=== PATIENT | female | born 1985 | race Caucasian/White ===

== ENCOUNTER 2020-02-22 12:05 | Inpatient (IN) | payer MEDICAID, SELFPAY ==
[2020-02-22 12:05] VITALS: BMI 62.6
[2020-02-22 14:57] VITALS: BP 148/79; PULSE 93; RESP 20; TEMP 36.6; O2SAT 96
[2020-02-22 15:47] VITALS: RESP 18
[2020-02-22] MEDS: oxyCODONE-APAP 10-325 mg Tablet 1 TAB PO ×2 (15:47→23:55)
[2020-02-22] MEDS: gabapentin 400 mg Capsule 800 MG PO ×2 (15:48→20:47)
[2020-02-22] MEDS: prazosin 1 mg Capsule 2 MG PO (17:06)
[2020-02-22 20:17] VITALS: PULSE 95; RESP 20; O2SAT 98
--- NOTE | 2020-02-22 20:43 | PC.NURSE ---
Patient is sad, tearful, cooperative. She denies SI at this time. She talked about her feelings of loss. Seems to be ready to accept help. Cooperative with staff. Pt reports UTI and flank pain. Med nurse notified.
[2020-02-22] MEDS: acetaminophen 325 mg Tablet 650 MG PO (20:47)
[2020-02-22] MEDS: quetiapine 100 mg Tablet PO (20:47)
[2020-02-22 20:52] VITALS: BP 131/85; PULSE 85; RESP 18; TEMP 36.6; O2SAT 95
--- NOTE | 2020-02-22 22:26 | PC.NURSE ---
pt reports feeling strange. she says her heart is racing. her pulse rate while sitting was 85 at 1800 and 120 at 2210 manually. REYNALDO farrell took another set of vital signs they are slightly elevated. will continue to monitor patient.
[2020-02-22 22:44] VITALS: BP 133/73; PULSE 93; O2SAT 96
[2020-02-22 23:55] VITALS: RESP 17; O2SAT 96
[2020-02-23] VITALS (8 sets, daily range): BP systolic 113–130; BP diastolic 70–76; PULSE 66–92; RESP 15–20; TEMP 36.6–36.7; O2SAT 93–98
[2020-02-23] MEDS: montelukast sodium 10 mg Tablet PO (07:47)
[2020-02-23] MEDS: gabapentin 400 mg Capsule 800 MG PO ×3 (07:47→21:53)
[2020-02-23] MEDS: metformin 500 mg Tablet PO (07:47)
[2020-02-23] MEDS: oxyCODONE-APAP 10-325 mg Tablet 1 TAB PO ×3 (07:48→21:54)
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
[2020-02-23 14:19] LABS: Add Urine Microscopic? NO
[2020-02-23 14:54] LABS: Bilirubin Urine Neg (Negative); Blood Urine Neg (Negative); Glucose Urine UA 4+ (Normal); Ketones Urine Negative (Negative); Leukocyte Esterase Urine Negative (Negative); Nitrate Urine Negative (Negative); Protein Urine Neg (Negative); Specific Gravity, Urine 1.025 (1.005-1.030); Urine Appearance Clear (CLEAR); Urine Color Yellow (Yellow); Urobilinogen Urine 1 mg/dL (Negative); pH Urine 5 (5-7)
[2020-02-23] MEDS: prazosin 1 mg Capsule 2 MG PO (17:17)
[2020-02-23] MEDS: quetiapine 100 mg Tablet PO (21:53)
[2020-02-24] VITALS (8 sets, daily range): BP systolic 121–137; BP diastolic 62–80; PULSE 75–87; RESP 17–22; TEMP 36.4–36.7; O2SAT 92–98
[2020-02-24] MEDS: oxyCODONE-APAP 10-325 mg Tablet 1 TAB PO ×3 (06:28→22:32)
[2020-02-24] MEDS: metformin 500 mg Tablet PO (08:09)
[2020-02-24] MEDS: montelukast sodium 10 mg Tablet PO (08:09)
[2020-02-24] MEDS: sertraline 50 mg Tablet PO (08:09)
[2020-02-24] MEDS: gabapentin 400 mg Capsule 800 MG PO ×3 (08:10→20:36)
--- NOTE | 2020-02-24 11:04 | P.PN_ITS ---
Subjective NPU Subjective: Interval history: Beena presents today reporting that she is feeling a little better with the initiation of the medication. Reports however that in the [place] and often she does feel she is capable of tolerating her previous doses. We also discussed the risks, benefits and alternatives of increasing her portions on the sides with the meals. She reports that she understands that she has nutritional issues but the volume of that we get this so dramatically low, that she is hungry all the time. She reported eating fine but struggling with sleep. Mental Status Exam MSE Comments: This is a morbidly obese white female with hospital gown on with no abnormal movements except for mild psychomotor retardation cooperative with exam. In no acute distress. Speech was normal rate and volume. Mood described as okay, affect congruent. Thought process organized. Thought content: Patient denied any suicidal or homicidal ideations, there were no delusions reported or noted, she denied any auditory or visual hallucinations. Attention and concentration were intact and memory appeared reliable but none were formally tested. She is alert and oriented x3. Insight and judgment were fair. Vitals/I&O/Wt Last Vital Signs Temp 97.8 F 02/24/20 06:00 Pulse 80 02/24/20 06:00 Resp 17 02/24/20 06:00 BP 122/73 02/24/20 06:00 Pulse Ox 97 02/24/20 06:00 Weight last 48 hrs Weight 192.493 kg A&P Additional A&P Information (1) Suicidal ideation: (2) Major depressive disorder, recurrent: (3) Anxiety disorder: (4) Polycystic ovarian syndrome: Additional A&P Information This is a 34-year-old white female who recently had her third miscarriage in her life after being off medication for 2 half months for said who presents with depression, suicidal thoughts and wanting to restart her medication. 1. Continue current medication. Continue to titrate Zoloft and Seroquel as indicated. 2. Continue every 15 min checks for safety. 3. Encourage individual, group and milieu therapy. 4. We will work with patient to get appropriate aftercare scheduled prior to discharge. Involuntary Hold Information 96 Hour Hold: 96 Hour Involuntary Admission: No Attestations NPU Medical Necessity Statement*: Inpatient hospitalization is medically necessary edema department at 100 we will monitor medications and make changes as indicated. Likely length of stay 1-3 days. Coding Level of Care Code Acute Network Operations Center Engineer for Richard Yan
[2020-02-24] MEDS: quetiapine 100 mg Tablet PO (20:36)
[2020-02-24] MEDS: prazosin 1 mg Capsule 2 MG PO (20:37)
[2020-02-24] MEDS: trazodone 50 mg Tablet PO (20:38)
[2020-02-25] VITALS (7 sets, daily range): BP systolic 124–142; BP diastolic 70–86; PULSE 71–88; RESP 16–22; TEMP 36.4–36.9; O2SAT 93–99
[2020-02-25] MEDS: oxyCODONE-APAP 10-325 mg Tablet 1 TAB PO ×3 (06:54→22:33)
[2020-02-25] MEDS: montelukast sodium 10 mg Tablet PO (08:23)
[2020-02-25] MEDS: sertraline 100 mg Tablet PO (08:23)
[2020-02-25] MEDS: gabapentin 400 mg Capsule 800 MG PO ×3 (08:23→20:53)
[2020-02-25] MEDS: metformin 500 mg Tablet PO (08:23)
--- NOTE | 2020-02-25 17:45 | P.PN_ITS ---
Subjective NPU Subjective: Interval history: Beena presents today reporting that she is feeling a little better. She got the increased dose of Zoloft but not Seroquel yet she will get that tonight. She reports that she started to feel a little better and we discussed the risk benefits and alternatives of considering a possible discharge tomorrow if she is feeling better still. She reports she is feeling less emotional about the loss of the baby and that she feels like she is getting more more stable on her medication. We did increase her portion size on the sides to help with her hunger but we also did discuss making better nutritional choices given her obesity. Mental Status Exam MSE Comments: This is a morbidly obese white female with hospital gown on with no abnormal movements except for mild psychomotor retardation cooperative with exam. In no acute distress. Speech was normal rate and volume. Mood described as a little better, affect congruent. Thought process organized. Thought content: Patient denied any suicidal or homicidal ideations, there were no delusions reported or noted, she denied any auditory or visual hallucinations. Attention and concentration were intact and memory appeared reliable but none were formally tested. She is alert and oriented x3. Insight and judgment were fair. Vitals/I&O/Wt Last Vital Signs Temp 98.5 F 02/25/20 14:00 Pulse 88 02/25/20 14:00 Resp 20 H 02/25/20 14:30 BP 124/81 02/25/20 14:00 Pulse Ox 93 02/25/20 06:00 Weight last 48 hrs Weight 192.493 kg A&P Additional A&P Information (1) Suicidal ideation: (2) Major depressive disorder, recurrent: (3) Anxiety disorder: (4) Polycystic ovarian syndrome: Additional A&P Information This is a 34-year-old white female who recently had her third miscarriage in her life after being off medication for 2 half months for said who presents with depression, suicidal thoughts and wanting to restart her medication. 1. Continue current medication. increase seroquel tonight. 2. Continue every 15 min checks for safety. 3. Encourage individual, group and milieu therapy. 4. We will work with patient to get appropriate aftercare scheduled prior to discharge. Involuntary Hold Information 96 Hour Hold: 96 Hour Involuntary Admission: No Attestations NPU Medical Necessity Statement*: Inpatient hospitalization is medically necessary edema department at 100 we will monitor medications and make changes as indicated. Likely length of stay 1-2 days. Coding Level of Care Code Acute Oil Field Pipeline Supervisor for Richard Yan
[2020-02-25] MEDS: quetiapine 100 mg Tablet 200 MG PO (20:52)
[2020-02-25] MEDS: trazodone 50 mg Tablet PO (20:52)
[2020-02-25] MEDS: prazosin 1 mg Capsule 2 MG PO (20:53)
[2020-02-26 06:28] VITALS: BP 119/77; PULSE 76; RESP 18; TEMP 36.8; O2SAT 92
[2020-02-26 06:58] VITALS: RESP 20
[2020-02-26] MEDS: oxyCODONE-APAP 10-325 mg Tablet 1 TAB PO ×2 (06:58→15:14)
[2020-02-26] MEDS: sertraline 100 mg Tablet PO (08:08)
[2020-02-26] MEDS: metformin 500 mg Tablet PO (08:08)
[2020-02-26] MEDS: montelukast sodium 10 mg Tablet PO (08:08)
[2020-02-26] MEDS: gabapentin 400 mg Capsule 800 MG PO ×2 (08:08→15:14)
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
[2020-02-26 13:44] VITALS: BP 122/80; PULSE 80; RESP 16; TEMP 36.8
[2020-02-26 15:14] VITALS: RESP 18
== END 2020-02-26 15:56 | disposition home or self-care (01) | DRG 885 ==
PROVIDERS: Admitting Provider Psychiatry & Neurology Psychiatry; Visit Provider Psychiatry & Neurology Psychiatry
DX: F33.9 Major depressive disorder, recurrent, unspecified (principal); R45.851 Suicidal ideations; Z68.44 Body mass index [BMI] 60.0-69.9, adult; Z81.8 Family history of other mental and behavioral disorders; J45.909 Unspecified asthma, uncomplicated; E66.01 Morbid (severe) obesity due to excess calories; F41.9 Anxiety disorder, unspecified; E28.2 Polycystic ovarian syndrome; Z79.891 Long term (current) use of opiate analgesic; Z79.51 Long term (current) use of inhaled steroids
CPT/HCPCS: 12345; 81003; 90471; 90686; 94640